=== PATIENT | male | born 1990 | race Caucasian/White ===

== ENCOUNTER 2016-09-06 01:56 | Emergency (ER) | payer OTHER ==
[~2016-09-06] VITALS: Ht 188 cm; Wt 104.5 kg
[2016-09-06] MEDS ORDERED: PERTUSS(ACELL),DIPH,TET VAC/PF 0.5 ML VIAL IM ONE (02:15)
[2016-09-06] MEDS ORDERED: LIDOCAINE HCL BUFFERED 1% W/EPI 1:100,000 20 ML VIAL INJ ONE (02:15)
[2016-09-06] MEDS ORDERED: AMOX TR/POT CLAV 875 MG/125 MG TABLET PO ONE (02:45)
[2016-09-06] MEDS ORDERED: IBUPROFEN 800 MG TABLET PO ONE (02:45)
[2016-09-06 03:31] VITALS: BP 128/90
== END 2016-09-06 03:35 | disposition home or self-care (01) ==
LOC: EMS 01:58
DX: S01.511A Laceration without foreign body of lip, initial encounter (principal); F17.210 Nicotine dependence, cigarettes, uncomplicated; Z91.013 Allergy to seafood; Y04.0XXA Assault by unarmed brawl or fight, initial encounter; Y93.89 Activity, other specified; Y92.9 Unspecified place or not applicable; Y99.9 Unspecified external cause status
CPT/HCPCS: 12011; 90471; 90715; 99283; J3490